=== PATIENT | female | born 2000 | race Two or more races ===

== ENCOUNTER 2022-10-01 03:58 | Inpatient (IN) | payer BC, OTHER ==
[~2022-10-01] VITALS: Ht 165.1 cm; Wt 62.6 kg
[2022-10-01] MEDS ORDERED: PRENATAL TABLE1 EAC1 PO (04:35)
== END 2022-10-03 10:59 | disposition home or self-care (01) | DRG 807 ==
LOC: OB/GYN 03:58 → LDR 03:58 → OB/GYN 13:43
PROVIDERS: ADMIT Obstetrics & Gynecology; ATTEND Obstetrics & Gynecology
PROC: 10E0XZZ Delivery of Products of Conception, External Approach (ICD-10-PCS; principal; 2022-10-01)
PROC: 4A1HXCZ Monitoring of Products of Conception, Cardiac Rate, External Approach (ICD-10-PCS; 2022-10-01)
DX: O80 Encounter for full-term uncomplicated delivery (principal); Z37.0 Single live birth; Z3A.38 38 weeks gestation of pregnancy; Z20.822 Contact with and (suspected) exposure to COVID-19